=== PATIENT | female | born 1980 | race African-American/Black ===

== ENCOUNTER 2016-08-15 23:39 | Emergency (ER) | payer BC ==
[~2016-08-15] VITALS: Ht 154.9 cm; Wt 56.7 kg
[2016-08-15 23:50] VITALS: BP 122/69
== END 2016-08-16 00:32 | disposition home or self-care (01) ==
LOC: ER 23:42
DX: L50.9 Urticaria, unspecified (principal); J45.909 Unspecified asthma, uncomplicated
CPT/HCPCS: 99281; A4606; Z7610; Z7502

== ENCOUNTER 2016-08-20 12:07 | Emergency (ER) | payer BC ==
[~2016-08-20] VITALS: Ht 162.6 cm; Wt 59.0 kg
[2016-08-20 12:09] VITALS: BP 129/81
== END 2016-08-20 12:29 | disposition home or self-care (01) ==
LOC: ER 12:08
DX: R21 Rash and other nonspecific skin eruption (principal); Z88.0 Allergy status to penicillin
CPT/HCPCS: A4606; Z7610

== ENCOUNTER 2016-08-28 11:38 | Emergency (ER) | payer BC ==
[~2016-08-28] VITALS: Ht 165.1 cm; Wt 59.0 kg
[2016-08-28 11:41] VITALS: BP 110/84
== END 2016-08-28 12:07 | disposition home or self-care (01) ==
LOC: ER 11:39
DX: L42 Pityriasis rosea (principal); Z88.0 Allergy status to penicillin
CPT/HCPCS: 99283; A4606; Z7610

== ENCOUNTER 2017-03-27 12:32 | Emergency (ER) | payer BC | END 2017-03-27 13:51 | disposition left against medical advice (07) | LOC: ER 12:33 | DX: Z53.21 Procedure and treatment not carried out due to patient leaving prior to being seen by health care provider (principal) ==

== ENCOUNTER 2017-03-30 11:58 | Emergency (ER) | payer BC ==
[~2017-03-30] VITALS: Ht 165.1 cm; Wt 61.2 kg
[2017-03-30 11:58] VITALS: BP 99/60
== END 2017-03-30 12:30 | disposition home or self-care (01) ==
LOC: ER 12:02
DX: J06.9 Acute upper respiratory infection, unspecified (principal); Z88.0 Allergy status to penicillin
CPT/HCPCS: 99283; A4606; Z7610

== ENCOUNTER 2018-07-01 08:41 | Emergency (ER) | payer BC ==
[~2018-07-01] VITALS: Ht 165.1 cm; Wt 62.2 kg
[2018-07-01 08:53] VITALS: BP 116/56
--- NOTE | 2018-07-01 09:29 | NUR ---
Patient discharged to home in stable condition. Written and verbal after care instructions given. Patient verbalizes understanding of instruction.
== END 2018-07-01 09:32 | disposition home or self-care (01) ==
LOC: ER 08:44
DX: B02.9 Zoster without complications (principal); Z88.0 Allergy status to penicillin